=== PATIENT | male | born 1980 | race Asian ===

== ENCOUNTER → 2019-07-30 | Outpatient (REF) | LOC: M LAB 11:23 | PROVIDERS: ATTEND Nurse Practitioner Adult Health | DX: Z02.1 Encounter for pre-employment examination (principal) ==

== ENCOUNTER → 2020-04-24 | Outpatient (CLI) | payer SELFPAY ==
[2020-04-24 12:31] LABS: RSV AMPLIFICATION NEGATIVE (NEGATIVE)
== END ==
LOC: M LABSMTC 10:00
PROVIDERS: ATTEND Pediatrics
DX: Z20.828 Contact with and (suspected) exposure to other viral communicable diseases (principal)